=== PATIENT | female | born 1970 | race Caucasian/White ===

== ENCOUNTER 2019-01-19 09:42 | Inpatient (IN) ==
--- NOTE | 2019-01-19 09:54 | ED ---
HPI General Chief Complaint: Altered Mental Status Stated Complaint: Poss Overdose Time Seen by Provider: 01/19/19 09:45 Source: EMS Mode of arrival: EMS Limitations: no limitations History of Present Illness HPI narrative: Patient with known history of drug use alcohol use and psychiatric history is brought in altered mental status, confused less responsive however able to breathe on her own. MD complaint: Reports altered mental status Consistency of symptoms: waxing and waning Context: Reports alcohol abuse and drug abuse Associated symptoms: Reports denies other symptoms Related Data Allergies Allergy/AdvReac Type Severity Reaction Status Date / Time No Known Allergies Allergy Verified 01/19/19 09:54 Review of Systems ROS: all other systems reviewed are negative PMFSH History History Provided By: Patient Social History Social History Substance History: Unable to Obtain Smoking Status: Unknown if ever smoked How Often Do You Have a Drink Containing Alcohol: Unable to Obtain Recent Travel in [facility] within the Last 8 Weeks: No Recent Out of Country Travel within the Last 8 Weeks: No Exam Narrative Exam Narrative: GENERAL: Well-nourished, well-developed patient in no apparent distress. breathing spontaneously on own, guarding airway SKIN: Warm and dry. HEAD: Atraumatic. Normocephalic. EYES: Pupils equal and round. No scleral icterus. No injection or drainage. ENT: No nasal bleeding or discharge. Mucous membranes pink and moist. NECK: Trachea midline. No JVD. CARDIOVASCULAR: Regular rate and rhythm. no rubs or gallops RESPIRATORY: No accessory muscle use. Clear to auscultation. Breath sounds equal bilaterally. GASTROINTESTINAL: Abdomen soft, non-tender, nondistended. No rebound or guarding MUSCULOSKELETAL: Extremities without clubbing, cyanosis, or edema. No obvious deformities. NEUROLOGICAL: Awake and arousable to speech...gcs 14. Drowsy sleepy but alert and oriented to name Place. Motor grossly within normal limits. Five out of 5 muscle strength in the arms and legs. Normal speech. Appears intoxicated Course Initial Documented Vital Signs Pulse Rate 94 H 01/19/19 09:47 Respiratory Rate 18 01/19/19 09:47 Pulse Oximetry 99 01/19/19 09:47 Last Documented Vital Signs Pulse Rate 82 01/19/19 12:14 Respiratory Rate 30 H 01/19/19 12:14 Blood Pressure 113/57 L 01/19/19 12:14 Pulse Oximetry 98 01/19/19 12:14 Medical Decision Making MDM Narrative Medical decision making narrative: No leukocytosis no anemia normal platelet count no left shift Coagulation profile is within normal limits Electrolytes are all within normal limits, normal thyroid screen Apparent normal liver enzymes kidney functions. Elevated ammonia 138 First set of cardiac enzymes negative, normal total CPK UA consistent with a possible UTI Depakote level 92 Negative alcohol level Tox screen negative except for marijuana Chest x-ray read by radiologist as parenchymal changes to left base Medical Screen Exam Complete: Yes Emergency Medical Condition: Yes Lab Data Result diagrams: 01/19/19 10:07 01/19/19 10:07 POC Results POC Urine Results Negative Lab Results 01/19/19 01/19/19 01/19/19 Range/Units 09:53 10:07 10:07 WBC 5.8 (4.0-11.0) th/mm3 RBC 4.46 (4.00-5.30) mil/mm3 Hgb 13.7 (11.6-15.3) gm/dL Hct 40.5 (35.0-46.0) % MCV 90.9 (80.0-100.0) fL MCH 30.8 (27.0-34.0) pg MCHC 33.9 (32.0-36.0) % RDW 14.9 (11.6-17.2) % Plt Count 362 (150-450) th/mm3 MPV 6.9 L (7.0-11.0) fL Neut % (Auto) 62.0 (16.0-70.0) % Lymph % (Auto) 32.2 (9.0-44.0) % [facility] % (Auto) 4.1 (0.0-8.0) % Eos % (Auto) 1.1 (0.0-4.0) % Baso % (Auto) 0.6 (0.0-2.0) % Neut # (Auto) 3.6 (1.8-7.7) th/mm3 Lymph # (Auto) 1.9 (1.0-4.8) th/mm3 [facility] # (Auto) 0.2 (0.0-0.9) th/mm3 Eos # (Auto) 0.1 (0.0-0.4) th/mm3 Baso # (Auto) 0.0 (0.0-0.2) th/mm3 WBC Differential . Differential Comment Auto diff final PT 10.8 (9.8-11.6) sec INR 1.1 Ratio APTT 28.5 (23.4-31.7) sec Sodium (136-145) meq/L Potassium (3.5-5.1) meq/L Chloride (98-107) meq/L Carbon Dioxide (21.0-32.0) meq/L Anion Gap (5-15) meq/L BUN (7-18) mg/dL Creatinine (0.50-1.00) mg/dL Estimated GFR (>89) mL/min POC Glucose 108 (68-110) mg/dl Random Glucose (74-106) mg/dL Calcium (8.5-10.1) mg/dL Total Bilirubin (0.2-1.0) mg/dL AST (15-37) U/L ALT (10-53) U/L Alkaline Phosphatase (45-117) U/L Ammonia (11-32) mcmol/L Total Creatine Kinase (26-192) U/L Troponin I (0.02-0.05) ng/mL Total Protein (6.4-8.2) g/dL Albumin (3.4-5.0) g/dL TSH (0.358-3.740) uIU/mL Urine Color (Yellw/Straw) Urine Clarity (Clear) Urine pH (5.0-8.5) Ur Specific [place] (1.002-1.035) Urine Protein (Neg-Trace) mg/dL Urine Glucose (UA) (Negative) mg/dL Urine Ketones (Negative) mg/dL Urine Occult Blood (Negative) Urine Nitrate (Negative) Urine Bilirubin (Negative) Urine Urobilinogen (Less than 2) mg/dL Ur Leukocyte Esterase (Negative) Urine RBC (0-3) /hpf Urine WBC (0-5) /hpf Ur Squamous Epith Cells (0-5) /hpf Urine Bacteria (None) /hpf Micro UA Comment Ur Microscopic Review Urine Culture Comments Urine Opiates Screen (Neg) Ur Barbiturates Screen (Neg) Valproic Acid (50-100) mcg/mL Ur Amphetamines Screen (Neg) U Benzodiazepines Scrn (Neg) Urine Cocaine Screen (Neg) U Cannabinoids Screen (Neg) Serum Alcohol (0-5) mg/dL 01/19/19 01/19/19 01/19/19 Range/Units 10:07 10:07 10:07 WBC (4.0-11.0) th/mm3 RBC (4.00-5.30) mil/mm3 Hgb (11.6-15.3) gm/dL Hct (35.0-46.0) % MCV (80.0-100.0) fL MCH (27.0-34.0) pg MCHC (32.0-36.0) % RDW (11.6-17.2) % Plt Count (150-450) th/mm3 MPV (7.0-11.0) fL Neut % (Auto) (16.0-70.0) % Lymph % (Auto) (9.0-44.0) % [facility] % (Auto) (0.0-8.0) % Eos % (Auto) (0.0-4.0) % Baso % (Auto) (0.0-2.0) % Neut # (Auto) (1.8-7.7) th/mm3 Lymph # (Auto) (1.0-4.8) th/mm3 [facility] # (Auto) (0.0-0.9) th/mm3 Eos # (Auto) (0.0-0.4) th/mm3 Baso # (Auto) (0.0-0.2) th/mm3 WBC Differential Differential Comment PT (9.8-11.6) sec INR Ratio APTT (23.4-31.7) sec Sodium 140 (136-145) meq/L Potassium 4.3 (3.5-5.1) meq/L Chloride 108 H (98-107) meq/L Carbon Dioxide 20.8 L (21.0-32.0) meq/L Anion Gap 11 (5-15) meq/L BUN 10 (7-18) mg/dL Creatinine 0.83 (0.50-1.00) mg/dL Estimated GFR 59 L (>89) mL/min POC Glucose (68-110) mg/dl Random Glucose 97 (74-106) mg/dL Calcium 9.3 (8.5-10.1) mg/dL Total Bilirubin 0.2 (0.2-1.0) mg/dL AST 15 (15-37) U/L ALT 24 (10-53) U/L Alkaline Phosphatase 95 (45-117) U/L Ammonia 138 H (11-32) mcmol/L Total Creatine Kinase 55 (26-192) U/L Troponin I Less than 0.02 L (0.02-0.05) ng/mL Total Protein 8.0 (6.4-8.2) g/dL Albumin 3.7 (3.4-5.0) g/dL TSH 3.270 (0.358-3.740) uIU/mL Urine Color (Yellw/Straw) Urine Clarity (Clear) Urine pH (5.0-8.5) Ur Specific [place] (1.002-1.035) Urine Protein (Neg-Trace) mg/dL Urine Glucose (UA) (Negative) mg/dL Urine Ketones (Negative) mg/dL Urine Occult Blood (Negative) Urine Nitrate (Negative) Urine Bilirubin (Negative) Urine Urobilinogen (Less than 2) mg/dL Ur Leukocyte Esterase (Negative) Urine RBC (0-3) /hpf Urine WBC (0-5) /hpf Ur Squamous Epith Cells (0-5) /hpf Urine Bacteria (None) /hpf Micro UA Comment Ur Microscopic Review Urine Culture Comments Urine Opiates Screen (Neg) Ur Barbiturates Screen (Neg) Valproic Acid 92 (50-100) mcg/mL Ur Amphetamines Screen (Neg) U Benzodiazepines Scrn (Neg) Urine Cocaine Screen (Neg) U Cannabinoids Screen (Neg) Serum Alcohol Less than 3 (0-5) mg/dL 01/19/19 01/19/19 Range/Units 11:15 11:15 WBC (4.0-11.0) th/mm3 RBC (4.00-5.30) mil/mm3 Hgb (11.6-15.3) gm/dL Hct (35.0-46.0) % MCV (80.0-100.0) fL MCH (27.0-34.0) pg MCHC (32.0-36.0) % RDW (11.6-17.2) % Plt Count (150-450) th/mm3 MPV (7.0-11.0) fL Neut % (Auto) (16.0-70.0) % Lymph % (Auto) (9.0-44.0) % [facility] % (Auto) (0.0-8.0) % Eos % (Auto) (0.0-4.0) % Baso % (Auto) (0.0-2.0) % Neut # (Auto) (1.8-7.7) th/mm3 Lymph # (Auto) (1.0-4.8) th/mm3 [facility] # (Auto) (0.0-0.9) th/mm3 Eos # (Auto) (0.0-0.4) th/mm3 Baso # (Auto) (0.0-0.2) th/mm3 WBC Differential Differential Comment PT (9.8-11.6) sec INR Ratio APTT (23.4-31.7) sec Sodium (136-145) meq/L Potassium (3.5-5.1) meq/L Chloride (98-107) meq/L Carbon Dioxide (21.0-32.0) meq/L Anion Gap (5-15) meq/L BUN (7-18) mg/dL Creatinine (0.50-1.00) mg/dL Estimated GFR (>89) mL/min POC Glucose (68-110) mg/dl Random Glucose (74-106) mg/dL Calcium (8.5-10.1) mg/dL Total Bilirubin (0.2-1.0) mg/dL AST (15-37) U/L ALT (10-53) U/L Alkaline Phosphatase (45-117) U/L Ammonia (11-32) mcmol/L Total Creatine Kinase (26-192) U/L Troponin I (0.02-0.05) ng/mL Total Protein (6.4-8.2) g/dL Albumin (3.4-5.0) g/dL TSH (0.358-3.740) uIU/mL Urine Color Yellow (Yellw/Straw) Urine Clarity Hazy H (Clear) Urine pH 8.0 (5.0-8.5) Ur Specific [place] 1.014 (1.002-1.035) Urine Protein Negative (Neg-Trace) mg/dL Urine Glucose (UA) Negative (Negative) mg/dL Urine Ketones Trace H (Negative) mg/dL Urine Occult Blood Small H (Negative) Urine Nitrate Negative (Negative) Urine Bilirubin Negative (Negative) Urine Urobilinogen Less than 2 (Less than 2) mg/dL Ur Leukocyte Esterase Negative (Negative) Urine RBC 4 H (0-3) /hpf Urine WBC 1 (0-5) /hpf Ur Squamous Epith Cells 4 (0-5) /hpf Urine Bacteria Rare H (None) /hpf Micro UA Comment Cath-culture ind Ur Microscopic Review Not Reportable Urine Culture Comments Cath-cult indicated Urine Opiates Screen Neg (Neg) Ur Barbiturates Screen Neg (Neg) Valproic Acid (50-100) mcg/mL Ur Amphetamines Screen Neg (Neg) U Benzodiazepines Scrn Neg (Neg) Urine Cocaine Screen Neg (Neg) U Cannabinoids Screen Pos H (Neg) Serum Alcohol (0-5) mg/dL Imaging Data Radiologist's impression: Chest X-Ray 01/19/19 09:54 CONCLUSION: Minimal parenchymal changes left base Discharge Plan Discharge Disposition Patient Disposition: ED Admit(ED Internal Use Only) Discharge Condition Condition: Fair Discharge Details Diagnosis: Delirium due to general medical condition, UTI (urinary tract infection), Pneumonia, Encephalopathy, hepatic Physicians Team ED Provider: Ga Mcarthur Discharge Interventions Interventions: Vital Signs Last Done: 01/19/19 12:14 Status ED Status: With Doctor
[2019-01-19] MEDS ORDERED: Sod Chloride 0.9% Inj 1,000 ML IV.SIG SCH (10:00)
--- NOTE | 2019-01-19 10:30 | XR ---
EXAM DATE: 01/19/2019 10:24 AM EST AGE/SEX: 89 years / Female INDICATIONS: Short of breath. CLINICAL DATA: This is the patient's initial encounter. Patient reports that signs and symptoms have been present for 1 day and indicates a pain score of Nonresponsive. MEDICAL/SURGICAL HISTORY: None. None. COMPARISON: No prior exams available for comparison. FINDINGS: Lungs are reasonably well aerated with minimal parenchymal changes left base. . The cardiomediastinal contours are unremarkable. Osseous structures are intact. CONCLUSION: Minimal parenchymal changes left base Electronically signed by: Eleno Aragon MD Board Certified Radiologist 01/19/2019 10:29 AM EST
[2019-01-19 10:31] LABS: Baso % (Auto) 0.6 % (0.0-2.0); Eos # (Auto) 0.1 th/mm3 (0.0-0.4); Eos % (Auto) 1.1 % (0.0-4.0); Hematocrit 40.5 % (35.0-46.0); Hemoglobin 13.7 gm/dL (11.6-15.3); Lymph # (Auto) 1.9 th/mm3 (1.0-4.8); Lymph % (Auto) 32.2 % (9.0-44.0); Mean Corpuscular HGB Conc 33.9 % (32.0-36.0); Mean Corpuscular Hemoglobin 30.8 pg (27.0-34.0); Mean Corpuscular Volume 90.9 fL (80.0-100.0); Mean Platelet Volume 6.9 fL (7.0-11.0); Mono # (Auto) 0.2 th/mm3 (0.0-0.9); Mono % (Auto) 4.1 % (0.0-8.0); Neut # (Auto) 3.6 th/mm3 (1.8-7.7); Platelet Count 362 th/mm3 (150-450); Red Blood Count 4.46 mil/mm3 (4.00-5.30); Red Cell Distribution Width 14.9 % (11.6-17.2); White Blood Count 5.8 th/mm3 (4.0-11.0)
[2019-01-19 10:38] LABS: Activated Partial Thrombo Time 28.5 sec (23.4-31.7); INR 1.1 Ratio; Prothrombin Time 10.8 sec (9.8-11.6)
[2019-01-19 10:46] LABS: Albumin 3.7 g/dL (3.4-5.0); Anion Gap 11 meq/L (5-15); Aspartate Aminotransferase 15 U/L (15-37); Blood Urea Nitrogen 10 mg/dL (7-18); Calcium 9.3 mg/dL (8.5-10.1); Carbon Dioxide 20.8 meq/L (21.0-32.0); Chloride 108 meq/L (98-107); Glomerular Filtration Rate 59 mL/min (>89); Glucose,Random 97 mg/dL (74-106); Potassium 4.3 meq/L (3.5-5.1); Sodium 140 meq/L (136-145)
[2019-01-19 10:47] LABS: Alanine Aminotransferase 24 U/L (10-53)
[2019-01-19 10:57] LABS: Alkaline Phosphatase 95 U/L (45-117); Valproic Acid 92 mcg/mL (50-100)
[2019-01-19 11:27] LABS: Bacteria,Urine Rare /hpf; Bilirubin,Urine Negative (Negative); Clarity,Urine Hazy (Clear); Color,Urine Yellow (Yellw/Straw); Glucose,Urine (UA) Negative (Negative); Leukocyte Esterase,Urine Negative (Negative); Nitrite,Urine Negative (Negative); Specific Gravity,Urine 1.014 (1.002-1.035); Squamous Epithelial Cell,Urine 4 /hpf (0-5)
[2019-01-19 11:31] LABS: Amphetamine Screen,Urine Neg (Neg); Barbiturate Screen,Urine Neg (Neg); Cannabinoid Screen,Urine Pos (Neg); Cocaine Screen,Urine Neg (Neg)
[2019-01-19 11:32] LABS: Opiate Screen,Urine Neg (Neg)
[2019-01-19] MEDS ORDERED: Levofloxacin 500 mg Premix Inj 500 MG/100 ML PIGGYBACK IV.SIG ONE (12:09)
--- NOTE | 2019-01-19 13:28 | CT ---
EXAM DATE: 01/19/2019 12:50 PM EST AGE/SEX: 89 years / Female INDICATIONS: Altered mental status. CLINICAL DATA: This is the patient's initial encounter. Patient reports that signs and symptoms have been present for 1 day and indicates a pain score of Nonresponsive. MEDICAL/SURGICAL HISTORY: Non-responsive. Non-responsive. RADIATION DOSE: 56.35 CTDI (mGy) COMPARISON: No prior exams available for comparison. TECHNIQUE: CT of the head without contrast. Using automated exposure control and adjustment of the mA and/or kV according to patient size, radiation dose was kept as low as reasonably achievable to ob tain optimal diagnostic quality images. DICOM format image data is available electronically for revi ew and comparison. FINDINGS: Cerebrum: The ventricles are normal for age. No evidence of midline shift, mass lesion, hemorrhage or acute infarction. No extraaxial fluid collections are seen. Mild prominence to the supraclinoid c arotid on the left. Posterior Fossa: The cerebellum and brainstem are intact. The 4th ventricle is midline. The cerebe llopontine angle is unremarkable. Extracranial: The visualized portion of the orbits is intact. Skull: The calvaria is intact. No evidence of skull fracture. CONCLUSION: 1. Negative for acute process. . . Electronically signed by: Eleno Aragon MD Board Certified Radiologist 01/19/2019 1:27 PM EST
--- NOTE | 2019-01-19 13:29 | ECG ---
Date Performed: 01/19/2019 Time Performed: 10:20:54 PTAGE: 89 years EKG: Sinus rhythm NONSPECIFIC T-WAVE ABNORMALITY BORDERLINE ECG NO PREVIOUS TRACING DOCTOR: Ariel Song Interpretating Date/Time 01/19/2019 13:27:48
--- NOTE | 2019-01-19 13:34 | P.HPIM ---
History of Present Illness Primary Care Physician: UNKNOWN Chief Complaint: altered mental status History of Present Illness: patient is a middle-aged female with history of drug abuse and questionable psych history who was brought to ER with altered mental status. patient is not a good historian and currently on restraints. she knows that she's in the hospital but she doesn't know why. she's not in acute distress and denies any pain. history is limited as noted before. Review of Systems ROS Unobtainable: unobtainable due to mental status PMFSH Social History Social History Substance History: Unable to Obtain Smoking Status: Unknown if ever smoked How Often Do You Have a Drink Containing Alcohol: Unable to Obtain Recent Travel in [facility] within the Last 8 Weeks: No Recent Out of Country Travel within the Last 8 Weeks: No Immunization History Tetanus Immunization: Unable to Assess Medications and Allergies Allergies Allergy/AdvReac Type Severity Reaction Status Date / Time No Known Allergies Allergy Verified 01/19/19 09:54 Home Medications Medication Instructions Recorded Confirmed Type aripiprazole [Abilify] 10 mg PO DAILY 01/19/19 01/19/19 History divalproex 500 mg PO BID 01/19/19 01/19/19 History fluoxetine 40 mg PO DAILY 01/19/19 01/19/19 History hydroxyzine pamoate 50 mg PO TID-QID PRN 01/19/19 01/19/19 History Active Medications: Active Medications Sodium Chloride (Ns Flush) 2 ml IV.FLUSH PRN PRN PRN Reason: FLUSH AFTER USING IV ACCESS Last Admin: 01/19/19 13:05 Dose: 2 ml Physical Exam Vital signs: Vital Signs 01/19/19 09:47 01/19/19 09:56 01/19/19 10:51 Temperature Pulse Rate 94 H 98 H Respiratory Rate 18 18 26 H Blood Pressure 154/90 H Pulse Oximetry 99 99 95 01/19/19 10:53 01/19/19 11:30 01/19/19 12:14 Temperature Pulse Rate 104 H 82 Respiratory Rate 36 H 30 H Blood Pressure 113/57 L Pulse Oximetry 96 100 98 01/19/19 13:00 Temperature 97.9 F Pulse Rate 81 Respiratory Rate 17 Blood Pressure 170/78 H Pulse Oximetry 95 Intake & Output 01/18/19 01/19/19 01/19/19 18:59 06:59 18:59 Intake Total 1000 / 1000 Balance 1000 / 1000 Weight 70 kg Intake: IV 1000 / 1000 NS Inj 1,000 ML @ 1000 mls/hr 1000 / 1000 IV.SIG BOLUS ALEXANDRE Rx#:[id number] Constitutional no acute distress Routine HEENT Exam Eye: Present PERRL Routine Neck Exam Present supple Routine Respiratory Exam Present CTA bilaterally Routine Cardiovascular Exam Present RRR Routine Abdominal Exam Present soft Routine Extremities Exam Comments: no pedal edema. Routine Neurological Exam Present alert awake, oriented to person and place but not to time. Results Labs CBC & Chem 7: 01/19/19 10:07 01/19/19 10:07 Imaging Impressions Chest X-Ray 01/19/19 09:54 CONCLUSION: Minimal parenchymal changes left base Head CT 01/19/19 09:54 CONCLUSION: 1. Negative for acute process. . . Caprini VTE Risk Assessment Caprini VTE Risk Assessment: Moderate/High Risk (score >= 2) Caprini Risk Assessment Model: Point Value = 1 Point Value = 2 Point Value = 3 Point Value = 5 Age 41-60 Minor surgery BMI > 25 kg/m2 Swollen legs Varicose veins or History of unexplained or recurrent spontaneous Oral contraceptives or hormone replacement Sepsis (< 1 month) Serious lung disease, including pneumonia (< 1 month) Abnormal pulmonary function Acute myocardial infarction Congestive heart failure (< 1 month) History of inflammatory bowel disease Medical patient at bed rest Age 61-74 Arthroscopic surgery Major open surgery (> 45 min) Laparoscopic surgery (> 45 min) Malignancy Confined to bed (> 72 hours) Immobilizing plaster cast Central venous access Age >= 75 History of VTE Family history of VTE Factor V Leiden Prothrombin [id number] Lupus anticoagulant Anticardiolipin antibodies Elevated serum homocysteine Heparin-induced thrombocytopenia Other congenital or acquired thrombophilia Stroke (< 1 month) Elective arthroplasty Hip, pelvis, or leg fracture Acute spinal cord injury (< 1 month) Prophylaxis Regimen: Total Risk Factor Score Risk Level Prophylaxis Regimen 0-1 Low Early ambulation 2 Moderate Order ONE of the following: *Sequential Compression Device (SCD) *Heparin 5000 units SQ BID 3-4 Higher Order ONE of the following medications: *Heparin 5000 units SQ TID *Enoxaparin/Lovenox 40 mg SQ daily (WT < 150 kg, CrCl > 30 mL/min) *Enoxaparin/Lovenox 30 mg SQ daily (WT < 150 kg, CrCl > 10-29 mL/min) *Enoxaparin/Lovenox 30 mg SQ BID (WT < 150 kg, CrCl > 30 mL/min) AND/OR *Sequential Compression Device (SCD) 5 or more Highest Order ONE of the following medications: *Heparin 5000 units SQ TID (Preferred with Epidurals) *Enoxaparin/Lovenox 40 mg SQ daily (WT < 150 kg, CrCl > 30 mL/min) *Enoxaparin/Lovenox 30 mg SQ daily (WT < 150 kg, CrCl > 10-29 mL/min) *Enoxaparin/Lovenox 30 mg SQ BID (WT < 150 kg, CrCl > 30 mL/min) AND *Sequential Compression Device (SCD) Assessment and Plan Plan A/P - acute encephalopathy with history of drug abuse/ hyperammonemia and questionable psych history urine toxicology positive for cannabinoids- will follow the CT head. continue with neuro-checks and supportive care and monitor. start on lactulose and monitor the ammonia level- check hepatis panel. will verify the home meds. will consider psych evaluation. -abnormal UA received a dose of IV antibiotic in ER- will follow the UC. - DVT prophylaxis with subq Lovenox. Discussed Condition With: ER physician, the patient and case management.
[2019-01-19] MEDS: Sod Chloride 0.9% Inj 1,000 ML IV.CONT SCH (13:41)
[2019-01-19] MEDS ORDERED: Haloperidol Inj 5 MG/ML Ampul IV.PUSH PRN (14:01)
[2019-01-19] MEDS ORDERED: LORazepam 1 MG Tablet PO PRN (14:01)
[2019-01-20] MEDS: Sod Chloride 0.9% Inj 1,000 ML IV.CONT SCH ×2 (05:26→11:52)
[2019-01-20 05:27] LABS: Calcium 7.7 mg/dL (8.5-10.1); Carbon Dioxide 23.9 meq/L (21.0-32.0); Potassium 3.3 meq/L (3.5-5.1)
[2019-01-20 06:11] LABS: Hepatitis A IgM Antibody Nonreactive (Nonreactive); Hepatitits B Surface Antigen Nonreactive (Nonreactive)
[2019-01-20 08:38] VITALS: RESP 18
[2019-01-20] MEDS ORDERED: Enoxaparin Inj 40 MG/0.4 ML Syringe SQ SCH (09:00)
--- NOTE | 2019-01-20 11:52 | P.PNIM ---
Subjective Interval history: Reports she was nauseated yesterday had an episode of vomiting currently no further nausea. No abdominal pain. No diarrhea. Reports that she was drinking alcohol about a day and a half ago. Does report at times she does drink heavily and has had alcohol withdrawal in the past. Reports she has bipolar disorder is taking Abilify, Depakote, fluoxetine. She does not report she has a history of hepatitis C. Has not follow-up with a physician. She would be willing to go home today and feels that she is back to her normal self. Denies any suicidal homicidal thoughts. Physical Exam Vital signs: Vital Signs 01/19/19 12:14 01/19/19 13:00 01/19/19 15:06 Temperature 97.9 F Pulse Rate 82 81 74 Respiratory Rate 30 H 17 16 Blood Pressure 113/57 L 170/78 H 115/67 Pulse Oximetry 98 95 01/19/19 20:00 01/19/19 22:00 01/20/19 00:00 Temperature 97.4 F L 97.5 F L Pulse Rate 76 80 64 Respiratory Rate 24 20 Blood Pressure 128/82 102/68 Pulse Oximetry 90 L 98 01/20/19 02:00 01/20/19 04:00 01/20/19 08:00 Temperature 97.7 F 98.4 F Pulse Rate 71 80 85 Respiratory Rate 20 18 Blood Pressure 130/70 114/74 Pulse Oximetry 99 98 Intake & Output 01/19/19 01/20/19 01/20/19 18:59 06:59 18:59 Intake Total 1100 / 1100 1180 / 1180 Balance 1100 / 1100 1180 / 1180 Weight 70 kg Intake: IV 1100 / 1100 1000 / 1000 NS Inj 1,000 ML @ 100 mls/hr IV 1000 / 1000 .CONT .Q10H ALEXANDRE Rx#:[id number] Levaquin 500 mg Premix Inj 500 100 / 100 mg In 100 ml @ 100 mls/hr IV. SIG ONCE ONE Rx#:[id number] NS Inj 1,000 ML @ 1000 mls/hr 1000 / 1000 IV.SIG BOLUS ALEXANDRE Rx#:[id number] Oral 180 / 180 Other: # Voids 1 # Bowel Movements 0 Narrative: Well-nourished well-developed female in no acute distress Cardiovascular regular rate and rhythm Lungs relatively clear to auscultation bilaterally Abdomen soft nontender nondistended normoactive bowel sounds Extremities no cyanosis clubbing or edema Neurological exam, alert and oriented to person place and time, motor strength 5 out of 5 bilateral upper and lower extremities Results Labs CBC & Chem 7: 01/19/19 10:07 01/20/19 04:44 Labs: Microbiology 01/19/19 11:15 Catheterized Urine Urine Culture - Preliminary No growth in 24 hours Imaging Imaging: Impressions Head CT 01/19/19 09:54 CONCLUSION: 1. Negative for acute process. . . Assessment and Plan Plan 41-year-old female with the name, Jenae Guzman admitted under [facility] Card186 presents with Acute toxic metabolic/hepatic encephalopathy with a history of alcohol abuse, hyperammonemia-now alert and oriented x3 Patient admitted to drinking alcohol denies marijuana use although toxic screen positive for cannabinoids. Hyperammonemia -ammonia level improved from 138-25 on lactulose Patient may have underlying liver dysfunction due to chronic alcohol abuse; check liver ultrasound. History of hepatitis C -untreated, counseled patient importance of follow-up with primary care physician GI. Bipolar disorderresume home Abilify and Depakote, fluoxetine, follow-up with primary care physician Hypokalemiareplete History of alcohol abusecessation counseling, currently on CIWA protocol, no signs of active withdrawal Patient with unexpected recovery from initial predicted clinical course Discharge patient to home after liver ultrasound Condition on discharge: Improved Regular Diet as tolerated Ad Klarissa activity No new Rx written Follow-up with primary care physician
[2019-01-20 16:15] VITALS: BP 108/70; PULSE 78; TEMP 97.7; O2SAT 100
--- NOTE | 2019-01-20 17:07 | US ---
EXAM DATE: 01/20/2019 5:01 PM EST AGE/SEX: 48 years / Female INDICATIONS: Abdominal pain. CLINICAL DATA: This is the patient's initial encounter. Patient reports that signs and symptoms have been present for 1 day and indicates a pain score of 6/10. MEDICAL/SURGICAL HISTORY: . Abdominal pain. None. COMPARISON: No prior exams available for comparison. MEASUREMENTS: Liver:__ 16.4 cm. Common Bile Duct:__ 4mm. Right Kidney:__ 9.6 x 4.98 x 4.5 cm. FINDINGS: Liver: Normal echogenicity without focal lesion or ductal dilatation. Portal Vein: Hepatopedal flow seen in portal vein. Common Duct: No intraluminal mass or stone visualized. Gallbladder: Demonstrates no wall thickening or pericholecystic fluid. No stones visualized. Pancreas: The visualized portions are within normal limits Right Kidney: Normal echogenicity and cortical thickness. No mass or hydronephrosis. Other: None. CONCLUSION: 1. Negative ultrasound liver. Electronically signed by: Mario Dominguez MD Board Certified Radiologist 01/20/2019 5:06 PM EST
[2019-01-20] MEDS ORDERED: Divalproex 500 MG DR Tablet PO SCH (21:00)
[2019-01-21] MEDS ORDERED: FLUoxetine 20 MG Capsule PO SCH (09:00)
[2019-01-21] MEDS ORDERED: ARIPiprazole 10 MG Tablet PO SCH (09:00)
== END 2019-01-20 18:30 | disposition home or self-care (01) | DRG 441 ==
LOC: NEPE 09:42 → HCIS 13:00 → NEDA 13:03 → INTOOBSV 13:03 → HCIS 18:41 → EDBD 01-20 12:32
PROVIDERS: ADMIT Family Medicine; ATTEND Family Medicine
CPT/HCPCS: 70450; 71010; 71045; 76705; 80048; 80053; 80074; 80164; 80307; 81001; 82140; 82550; 82948; 82962; 84443; 84484; 84703; 85025; 85610; 85730; 87086; 90761; 93005; 96361; 96365; 96375; 96376; 99285; G0378; J1650; J1956; J2060; J7030; P9612